=== PATIENT | female | born 1955 | race Caucasian/White ===

== ENCOUNTER 2018-12-23 22:15 | Emergency (ER) | payer OTHER ==
--- NOTE | 2018-12-23 23:06 | EDM.PDOC ---
ED HPI GENERAL MEDICAL PROBLEM - General Chief Complaint: Syncope Stated Complaint: FAINTED Time Seen by Provider: 12/23/18 22:55 Source of Information: Reports: Patient, EMS History Limitations: Reports: Other (no old records) - History of Present Illness INITIAL COMMENTS - FREE TEXT/NARRATIVE: 63 yo female from [facility] presents after a brief syncopal episode at a local restaurant. Only takes omeprazole for meds. Had a similar syncopal episode this past August tx'd at [facility] in the [facility]. There they found nothing on her work up per her report. States that as with last time she moves her L arm the wrong way and gets a sharp pain her back and then she passes out. Was sitting today when she passed out for about 10 seconds. Her got her legs up and she eventually started feeling normal. By the time EMS arrived she was able to walk out to the ambulance. Feels normal now. Has no knowledge of being told she has a bundle branch block(left bundle on EKG per EMS today). 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: Other (see below) (none) neck/left shoulder pain Pain Score (Numeric/FACES): 2 - Related Data Allergies Allergy/AdvReac Type Severity Reaction Status Date / Time No Known Allergies Allergy Verified 12/23/18 23:06 Home Meds: Home Meds Omeprazole 20 mg PO DAILY 12/23/18 [History] Past Medical History HEENT History: Reports: Impaired Vision Gastrointestinal History: Reports: Other (See Below) Other Gastrointestinal History: acid reflux SUPPORT COORDINATOR History: Reports: Musculoskeletal History: Reports: Fracture - Infectious Disease History Infectious Disease History: Reports: Chicken Pox - Past Surgical History HEENT Surgical History: Reports: Tonsillectomy Female Surgical History: Reports: Tubal Ligation Social & Family History - Tobacco Use Smoking Status *Q: Never Smoker - Caffeine Use Caffeine Use: Reports: Coffee - Recreational Drug Use Recreational Drug Use: No Drug Use in Last 12 Months: Yes ED ROS GENERAL - Review of Systems Review Of Systems: See Below Constitutional: Reports: No Symptoms HEENT: Reports: No Symptoms Respiratory: Reports: No Symptoms Cardiovascular: Reports: Syncope Endocrine: Reports: No Symptoms GI/Abdominal: Reports: No Symptoms : Reports: No Symptoms Musculoskeletal: Reports: Shoulder Pain (L posterior) Skin: Reports: No Symptoms Neurological: Reports: Syncope - Physical Exam Exam: See Below Exam Limited By: No Limitations General Appearance: Alert, WD/WN, No Apparent Distress Eye Exam: Bilateral Eye: Normal Inspection Ears: Normal External Exam, Normal Canal, Hearing Grossly Normal, Normal TMs Nose: Normal Inspection, Normal Mucosa, No Blood Throat/Mouth: Normal Inspection, Normal Lips, Normal Oropharynx, Normal Voice, No Airway Compromise Head Exam: Atraumatic, Normocephalic Neck: Normal Inspection, Supple, Non-Tender, Full Range of Motion Respiratory/Chest: No Respiratory Distress, Lungs Clear, Normal Breath Sounds, No Accessory Muscle Use Cardiovascular: Regular Rate, Rhythm, No Edema GI/Abdominal: Normal Bowel Sounds, Soft, Non-Tender, No Distention Neuro Exam (Abbreviated): Alert, Oriented, CN II-XII Intact, Normal Cognition, No Motor/Sensory Deficits Back Exam: Normal Inspection Extremities: Normal Inspection, Normal Range of Motion, Non-Tender, No Pedal Edema Psychiatric: Normal Affect, Normal Mood Skin Exam: Warm, Dry, Intact, Normal Color, No Rash Course - Vital Signs Last Recorded V/S: Last Vital Signs Temp 36.4 C 12/23/18 22:42 Pulse 59 L 12/23/18 22:42 Resp 18 12/23/18 22:42 BP 119/65 12/23/18 22:42 Pulse Ox 96 12/23/18 22:42 Orthostatic Blood Pressure [ 117/83 Standing] Orthostatic Blood Pressure [ 129/78 Sitting] Orthostatic Blood Pressure [ 121/74 Supine] - Orders/Labs/Meds Orders: Active Orders 24 hr Category Date Time Status Cardiac Monitoring [RC] .As Directed Care 12/23/18 22:47 Active Orthostatic Vital Signs [RC] ASDIRECTED Care 12/23/18 22:47 Active Aspirin Med 12/24/18 00:07 Once 81 mg PO ONETIME ONE Sodium Chloride 0.9% [Saline Flush] Med 12/23/18 23:34 Active 10 ml FLUSH ASDIRECTED PRN Saline Lock Insert [OM.PC] Routine Oth 12/23/18 23:34 Ordered Medication Orders Aspirin (Aspirin) 81 mg PO ONETIME ONE Stop: 12/24/18 00:08 Sodium Chloride (Saline Flush) 10 ml FLUSH ASDIRECTED PRN PRN Reason: Keep Vein Open Last Admin: 12/23/18 23:45 Dose: 10 ml Labs: Laboratory Tests 12/23/18 12/23/18 12/23/18 Range/Units 23:23 23:23 23:23 WBC 8.2 (4.5-11.0) K/uL RBC 4.19 (3.30-5.50) M/uL Hgb 12.9 (12.0-15.0) g/dL Hct 40.8 (36.0-48.0) % MCV 97 (80-98) fL MCH 31 (27-31) pg MCHC 32 (32-36) % Plt Count 274 (150-400) K/uL Sodium 140 (140-148) mmol/L Potassium 3.5 L (3.6-5.2) mmol/L Chloride 104 (100-108) mmol/L Carbon Dioxide 27 (21-32) mmol/L Anion Gap 12.5 (5.0-14.0) mmol/L BUN 17 (7-18) mg/dL Creatinine 0.9 (0.6-1.0) mg/dL Est Cr Clr Drug Dosing 59.07 mL/min Estimated GFR (MDRD) > 60 (>60) Glucose 122 H (74-106) mg/dL Calcium 9.1 (8.5-10.1) mg/dL Troponin I (0.000-0.056) ng/mL Urine Color Yellow Urine Appearance Clear Urine pH 5.0 (4.5-8.0) Ur Specific [place] 1.015 (1.008-1.030) Urine Protein Negative (NEGATIVE) mg/dL Urine Glucose (UA) Normal (NEGATIVE) mg/dL Urine Ketones Negative (NEGATIVE) mg/dL Urine Occult Blood Trace (NEGATIVE) Urine Nitrite Negative (NEGATIVE) Urine Bilirubin Negative (NEGATIVE) Urine Urobilinogen Normal (NORMAL) mg/dL Ur Leukocyte Esterase Negative (NEGATIVE) Urine RBC 0-5 (0-5) Urine WBC 0-5 (0-5) Ur Epithelial Cells Rare Amorphous Sediment Not seen Urine Bacteria Few Urine Mucus Rare 12/23/18 Range/Units 23:23 WBC (4.5-11.0) K/uL RBC (3.30-5.50) M/uL Hgb (12.0-15.0) g/dL Hct (36.0-48.0) % MCV (80-98) fL MCH (27-31) pg MCHC (32-36) % Plt Count (150-400) K/uL Sodium (140-148) mmol/L Potassium (3.6-5.2) mmol/L Chloride (100-108) mmol/L Carbon Dioxide (21-32) mmol/L Anion Gap (5.0-14.0) mmol/L BUN (7-18) mg/dL Creatinine (0.6-1.0) mg/dL Est Cr Clr Drug Dosing mL/min Estimated GFR (MDRD) (>60) Glucose (74-106) mg/dL Calcium (8.5-10.1) mg/dL Troponin I < 0.017 (0.000-0.056) ng/mL Urine Color Urine Appearance Urine pH (4.5-8.0) Ur Specific [place] (1.008-1.030) Urine Protein (NEGATIVE) mg/dL Urine Glucose (UA) (NEGATIVE) mg/dL Urine Ketones (NEGATIVE) mg/dL Urine Occult Blood (NEGATIVE) Urine Nitrite (NEGATIVE) Urine Bilirubin (NEGATIVE) Urine Urobilinogen (NORMAL) mg/dL Ur Leukocyte Esterase (NEGATIVE) Urine RBC (0-5) Urine WBC (0-5) Ur Epithelial Cells Amorphous Sediment Urine Bacteria Urine Mucus Meds: Medications Generic Name Dose Route Start Last Admin Trade Name Freq PRN Reason Stop Dose Admin Aspirin 81 mg 12/24/18 00:07 Aspirin PO 12/24/18 00:08 ONETIME ONE Sodium Chloride 10 ml 12/23/18 23:34 12/23/18 23:45 Saline Flush FLUSH 10 ml ASDIRECTED PRN Administration Keep Vein Open Departure - Departure Time of Disposition: 00:10 Disposition: Home, Self-Care 01 Condition: Fair Clinical Impression: Left bundle branch block (LBBB) Syncope Qualifiers: Syncope type: vasovagal syncope Qualified Code(s): R55 - Syncope and collapse - Discharge Information *PRESCRIPTION DRUG MONITORING PROGRAM REVIEWED*: No *COPY OF PRESCRIPTION DRUG MONITORING REPORT IN PATIENT LEOPOLDO: No Instructions: Left Bundle Branch Block, Syncope, [id number] Referrals: PCP,None [Primary Care Provider] - Forms: ED Department Discharge Additional Instructions: Take a baby aspirin daily with food. Follow up with cardiology at your earliest opportunity, take your EKG's along to your appt. Recheck in an ER if you have any problems in the interim. - My Orders Last 24 Hours: My Active Orders 12/23/18 22:47 Cardiac Monitoring [RC] .As Directed Orthostatic Vital Signs [RC] ASDIRECTED 12/23/18 23:34 Sodium Chloride 0.9% [Saline Flush] 10 ml FLUSH ASDIRECTED PRN Saline Lock Insert [OM.PC] Routine 12/24/18 00:07 Aspirin 81 mg PO ONETIME ONE - Assessment/Plan Last 24 Hours: My Active Orders 12/23/18 22:47 Cardiac Monitoring [RC] .As Directed Orthostatic Vital Signs [RC] ASDIRECTED 12/23/18 23:34 Sodium Chloride 0.9% [Saline Flush] 10 ml FLUSH ASDIRECTED PRN Saline Lock Insert [OM.PC] Routine 12/24/18 00:07 Aspirin 81 mg PO ONETIME ONE
[2018-12-23] MEDS ORDERED: Sodium Chloride 0.9% 10 ML Syringe FLUSH PRN (23:34)
[2018-12-24] MEDS ORDERED: Aspirin 81 MG Tab.Chew PO ONE (00:07)
== END 2018-12-24 00:34 | disposition home or self-care (01) ==
LOC: JP.ED 22:15
DX: I44.7 Left bundle-branch block, unspecified (principal); R55 Syncope and collapse
CPT/HCPCS: 36415; 80048; 81001; 84484; 85027; 99284; A9270